=== PATIENT | female | born 1975 | race Caucasian/White ===

== ENCOUNTER 2020-02-22 12:35 | Observation (INO) | payer OTHER ==
[~2020-02-22] VITALS: Ht 152.4 cm; Wt 73.8 kg
[2020-02-22] MEDS ORDERED: SODIUM CHLORIDE 0.9% 1,000 ML IV SCH (14:00)
[2020-02-22 14:01] VITALS: BP 150/94
[2020-02-22] MEDS ORDERED: LOSA25TA25 PO (14:12)
[2020-02-22] MEDS ORDERED: DILT120C64 PO (14:12)
[2020-02-22 14:16] LABS: BASOPHILS % (AUTO) 1 % (0-1); EOSINOPHILS % (AUTO) 1 % (1-7); LYMPHOCYTES % (AUTO) 29 % (22-44); MEAN CORPUSCULAR HEMOGLOBIN 29.1 pg (27.0-34.8); MEAN CORPUSCULAR HGB CONC 32.7 g/dL (32.4-35.8); MEAN PLATELET VOLUME 7.4 fL (7.4-10.4); MONOCYTES % (AUTO) 6 % (2-9); NEUTROPHILS % (AUTO) 64 % (42-75); PLATELET COUNT 353 x10^3/uL (130-400); RED BLOOD COUNT 4.59 x10^6/uL (3.82-5.3); RED CELL DISTRIBUTION WIDTH 13.4 % (9.6-15.2)
[2020-02-22 14:22] LABS: MD NO
[2020-02-22 14:25] LABS: INTERNATIONAL NORMALIZED RATIO 0.99 (0.93-1.1); PROTHROMBIN TIME 10.5 Seconds (9.6-11.5)
[2020-02-22 14:26] LABS: ANION GAP 8 mmol/L (5-15); CALCIUM 8.3 mg/dL (8.5-10.1); CHLORIDE 107 mmol/L (98-107)
[2020-02-22 14:31] LABS: CREATININE 0.72 mg/dL (0.55-1.02)
[2020-02-22] MEDS ORDERED: ISOPROTERENOL 0.2MG/ML, 5ML ONE (17:46)
[2020-02-22] MEDS ORDERED: FENTANYL PF 250 MCG/5ML ONE (17:46)
[2020-02-22] MEDS ORDERED: MIDAZOLAM 1 MG/ML, 5ML ONE (17:46)
[2020-02-22] MEDS ORDERED: LIDOCAINE 1%, 20ML ONE (17:46)
[2020-02-23 00:54] VITALS: BP 135/85
[2020-02-23 07:02] VITALS: BP 129/83
[2020-02-23] MEDS ORDERED: ACET325T26 PO (08:08)
== END 2020-02-23 11:07 | disposition home or self-care (01) ==
LOC: CACL 12:35 → 5SO 17:01 → CACL 19:29 → INTOOBSV 19:29 → 5SO 19:29 → DCLOUNGE 02-23 11:04
PROVIDERS: ADMIT Internal Medicine Clinical Cardiac Electrophysiology; ATTEND Internal Medicine Clinical Cardiac Electrophysiology
DX: I47.1 Supraventricular tachycardia (principal); I10 Essential (primary) hypertension; F10.10 Alcohol abuse, uncomplicated; Z79.899 Other long term (current) drug therapy
CPT/HCPCS: 36415; 71046; 80048; 84703; 85025; 85610; 85730; 93005; 93613; 93620; 93623; 99156; 99157; C1730; C1894; C2630; G0378; J2250; J3010; J3490